=== PATIENT | female | born 1995 | race Two or more races ===

== ENCOUNTER 2023-04-17 20:30 | Inpatient (IN) | payer OTHER ==
[~2023-04-17] VITALS: Ht 160 cm; Wt 83.9 kg
[2023-04-17] MEDS ORDERED: LABETALOL HCL200 MG PO (20:46)
[2023-04-17] MEDS ORDERED: PRENATAL TABLE1 EAC1 PO (20:47)
[2023-04-17 21:35] LABS: PH,URINE 6.5 (5.0-8.0); URINE APPEARANCE Clear; URINE BILIRRUBIN Negative (NEGATIVE); URINE BLOOD Negative; URINE COLOR Yellow; URINE GLUCOSE Negative (NEGATIVE); URINE LEUKOCYTE Negative; URINE NITRATE Negative; URINE PROTEIN Negative (NEGATIVE); URINE UROBILINOGEN 0.2 E.U./dl
[2023-04-17 21:35] LABS: HEMATOCRIT 31.6 % (36.0-45.00); MEAN CELL VOLUME 88.7 fL (80.00-100.00); MEAN CORPUSCULAR HEMOGLOBIN 30.8 pg (27.00-32.0); MEAN CORPUSCULAR HGB CONC 34.7 g/dl (32.0-36.0); PLATELET COUNT 318 K/uL (150-450); RED BLOOD COUNT 3.56 M/uL (4.00-6.00); RED CELL DISTRIBUTION WIDTH 13.1 % (11.5-14.5)
[2023-04-17 21:39] LABS: URINE BACTERIA 203.8 uL (0.0-1933); URINE EPITHELIAL CELLS 2.4 uL (0.0-38.8); URINE WBC 2.9 uL (0.0-23.2)
[2023-04-17 22:02] LABS: ALBUMIN 2.8 gm/dL (3.4-5.0); BILIRUBIN TOTAL 0.15 mg/dL (0.3-1.2); CREATININE SERUM 0.67 mg/dL (0.55-1.02); GFR 104.06; GLOBULINA 3.7 G/DL (2.4-3.5); POTASSIUM 3.96 mEq/L (3.5-5.1); TOTAL PROTEIN 6.5 gm/dL (6.4-8.2)
[2023-04-17 22:07] LABS: URINE RBC 0.1 uL (0.0-20.8)
== END 2023-04-19 09:32 | disposition home or self-care (01) | DRG 833 ==
LOC: LDR 20:30 → OB/GYN 04-18 08:15
PROVIDERS: ADMIT Obstetrics & Gynecology Maternal & Fetal Medicine; ATTEND Obstetrics & Gynecology Maternal & Fetal Medicine
PROC: 4A1HXCZ Monitoring of Products of Conception, Cardiac Rate, External Approach (ICD-10-PCS; principal; 2023-04-17)
DX: O60.03 Preterm labor without delivery, third trimester (principal); Z3A.36 36 weeks gestation of pregnancy; Z20.822 Contact with and (suspected) exposure to COVID-19

== ENCOUNTER 2023-04-27 08:45 | Inpatient (IN) | payer OTHER ==
[~2023-04-27] VITALS: Ht 160 cm; Wt 86.2 kg
[~2023-04-27 08:45] MED LIST: LABETALOL HCL200 MG PO; PRENATAL TABLE1 EAC1 PO
[2023-04-27] MEDS ORDERED: NIFE60TA3 PO (10:46)
[2023-04-27 11:24] LABS: INR < 0.93; PARTIAL THROMBOPLASTIN TIME 26.8 SECONDS (22.0-34.0); PROTHROMBIN TIME 9.3 SECONDS (9.0-11.5)
[2023-05-04] MEDS ORDERED: CEFAZOLIN SODIUM 1,000 MG VIAL ONE (11:08)
[2023-05-04] MEDS ORDERED: CITRIC ACID/SODIUM CITRATE 30 ML BLIST.PACK PO ONE ×2 (11:08→15:30)
[2023-05-04] MEDS ORDERED: ERYTHROMYCIN BASE 3.5 GM OINT...G. OP ONE (11:15)
[2023-05-04] MEDS ORDERED: OXYTOCIN 10 UNITS/ML VIAL ONE (11:15)
[2023-05-04] MEDS ORDERED: KETOROLAC TROMETHAMINE 30 MG VIAL ONE ×2 (12:15→16:25)
[2023-05-04] MEDS ORDERED: TRIAMCINOLONE ACETONIDE 40 MG/ML VIAL ONE (12:17)
[2023-05-04] MEDS ORDERED: MORPHINE SULFATE 4 MG/ML CARTRIDGE IV SCH (14:58)
[2023-05-04] MEDS ORDERED: KETOROLAC TROMETHAMINE 30 MG VIAL IV SCH (14:59)
[2023-05-04] MEDS ORDERED: ERYTHROMYCIN BASE 1 GM TUBE OP ONE (15:30)
[2023-05-04] MEDS ORDERED: OXYTOCIN 10 UNITS/ML VIAL IV ONE (15:30)
[2023-05-04] MEDS ORDERED: CEFAZOLIN SODIUM 1,000 MG VIAL IV ONE (15:30)
[2023-05-05] MEDS ORDERED: ACETAMINOPHEN 500 MG GEL..CAP PO SCH (06:00)
[2023-05-05 07:07] LABS: HEMATOCRIT 27.9 % (36.0-45.00); HEMOGLOBIN 9.9 g/dL (12.0-15.00); MEAN CELL VOLUME 89.3 fL (80.00-100.00); MEAN CORPUSCULAR HEMOGLOBIN 31.5 pg (27.00-32.0); MEAN CORPUSCULAR HGB CONC 35.3 g/dl (32.0-36.0); PLATELET COUNT 284 K/uL (150-450); RED BLOOD COUNT 3.13 M/uL (4.00-6.00); RED CELL DISTRIBUTION WIDTH 13.6 % (11.5-14.5)
[2023-05-05] MEDS ORDERED: PNV,CALCIUM 72/IRON/FOLIC ACID 1 TAB TABLET PO SCH (09:00)
[2023-05-05] MEDS ORDERED: SIMETHICONE 125 MG CAPSULE PO SCH (09:00)
[2023-05-05] MEDS ORDERED: DOCUSATE SODIUM 100MG CAP PO SCH (09:00)
[2023-05-05] MEDS ORDERED: GABAPENTIN 300 MG CAPSULE PO SCH (09:00)
[2023-05-05] MEDS ORDERED: IBUprofen 600 MG TABLET PO SCH (12:00)
== END 2023-05-06 15:09 | disposition home or self-care (01) | DRG 788 ==
LOC: OB/GYN 05-04 07:00 → O/R 05-04 08:00 → OB/GYN 05-04 08:45
PROVIDERS: Obstetrics & Gynecology Gynecology; ADMIT Obstetrics & Gynecology; ATTEND Obstetrics & Gynecology
PROC: 4A1HXCZ Monitoring of Products of Conception, Cardiac Rate, External Approach (ICD-10-PCS; 2023-05-04)
PROC: 10D00Z1 Extraction of Products of Conception, Low, Open Approach (ICD-10-PCS; principal; 2023-05-04 07:00)
DX: O34.211 Maternal care for low transverse scar from previous cesarean delivery (principal); O13.4 Gestational [pregnancy-induced] hypertension without significant proteinuria, complicating childbirth; Z3A.38 38 weeks gestation of pregnancy; Z37.0 Single live birth; Z20.822 Contact with and (suspected) exposure to COVID-19

== ENCOUNTER 2023-04-28 11:18 | Outpatient (CLI) | payer OTHER ==
[~2023-04-28 11:18] MED LIST changes: +NIFE60TA3 PO
== END 2023-04-28 12:12 | disposition home or self-care (01) ==
LOC: NST 11:18
PROVIDERS: ATTEND Obstetrics & Gynecology
DX: Z34.83 Encounter for supervision of other normal pregnancy, third trimester (principal)